=== PATIENT | female | born 1990 | race Asian ===

== ENCOUNTER → 2023-12-27 12:53 | Outpatient (REF) | payer BC, SELFPAY | LOC: HWRAD 12:53 | PROVIDERS: ATTENDING PHYSICIAN Obstetrics & Gynecology; FAMILY PHYSICIAN Nurse Practitioner | DX: O02.1 Missed abortion (principal) | CPT/HCPCS: 76830; 76856 ==

== ENCOUNTER → 2025-01-11 13:35 | Outpatient (REF) | payer BC, SELFPAY | LOC: PNTC 13:35 | PROVIDERS: ATTENDING PHYSICIAN Obstetrics & Gynecology | DX: O09.513 Supervision of elderly primigravida, third trimester (principal); O24.410 Gestational diabetes mellitus in pregnancy, diet controlled; O34.13 Maternal care for benign tumor of corpus uteri, third trimester; O99.213 Obesity complicating pregnancy, third trimester | CPT/HCPCS: 76816 ==

== ENCOUNTER → 2025-01-18 08:06 | Outpatient (REF) | payer BC, SELFPAY ==
--- NOTE | 2025-01-17 14:44 | PN.DIAED06 ---
Meal Plan - Gestational
- Breakfast
Gestational Diabetes Meal Plan Name: 1800 calories
Breakfast - Total Carbohydrate (grams): 30 (1 serving carb = 15 g.)
Breakfast - Starch Carbohydrate: 1
Breakfast - Fruit Carbohydrate: 0 (no fruit or juice before lunch)
Breakfast - Milk Carbohydrate: 1
Breakfast - Nonstarchy Vegetables: Yes
Breakfast - Meat/Protein: 1 (1 serving protein = 1 oz = 28 g. )
Breakfast - Fat: 2 (1 serving fat = 5 g.)
- Morning Snack
Morning Snack - Total Carbohydrate (grams): 30
Morning Snack - Starch Carbohydrate: 1
Morning Snack - Fruit Carbohydrate: 0 (no fruit or juice before lunch)
Morning Snack - Milk Carbohydrate: 1
Morning Snack - Nonstarchy Vegetables: Yes
Morning Snack - Meat/Protein: 0.5
Morning Snack - Fat: 0
- Lunch
Lunch - Total Carbohydrate (grams): 45
Lunch - Starch Carbohydrate: 2
Lunch - Fruit Carbohydrate: 1
Lunch - Milk Carbohydrate: 0
Lunch - Nonstarchy Vegetables: Yes
Lunch - Meat/Protein: 2
Lunch - Fat: 1
- Afternoon Snack
Afternoon Snack - Total Carbohydrate (grams): 30
Afternoon Snack - Starch Carbohydrate: 1
Afternoon Snack - Fruit Carbohydrate: 1
Afternoon Snack - Milk Carbohydrate: 0
Afternoon Snack - Nonstarchy Vegetables: Yes
Afternoon Snack - Meat/Protein: 1
Afternoon Snack - Fat: 0
- Dinner
Dinner - Total Carbohydrate (grams): 45
Dinner - Starch Carbohydrate: 2
Dinner - Fruit Carbohydrate: 0
Dinner - Milk Carbohydrate: 1
Dinner - Nonstarchy Vegetables: Yes
Dinner - Meat/Protein: 2
Dinner - Fat: 2
- Evening Snack
Evening Snack - Total Carbohydrate (grams): 30
Evening Snack - Starch Carbohydrate: 1
Evening Snack - Fruit Carbohydrate: 0
Evening Snack - Milk Carbohydrate: 1
Evening Snack - Nonstarchy Vegetables: Yes
Evening Snack - Meat/Protein: 1
Evening Snack - Fat: 1
--- NOTE | 2025-01-18 10:00 | PN.DE ---
Diabetes Education
- -
01/18/2025 GESTATIONAL DIABETES CONSULT
Met with Ms. Malik today for medical nutrition therapy. She is G2, P0 and her JUSTIN is 03/19/[birth year]25.
Explained glucose metabolism in body and what occurs during to cause increase blood sugar. Discussed importance of keeping BS well controlled to avoid complications to the baby during and after (macrosomia, hypoglycemia).
Discussed macronutrients, provided with 1800 davina GDM meal plan, reviewed carb, protein and fat portion sizes and food combinations necessary for glucose control.
Discussed physical activity, she does yoga and some walking stating that she feels tired after 15 minutes. Samuel was encouraged to start exercising by taking a walk after meals. She was receptive to the idea.
Yuliya presented to the appointment with a new Glucose monitor- [employer] Verio with supplies. Reviewed proper testing technique, testing sites and testing pattern. She is aware to test FBS and 2 hr pp each meal. Expected results for FBS <95 mg/dl
and 2 hr pp <120 mg/dl. Noted for blood sugar of 88 mg/dL post prandial. Log sheet provided for her to record results, she will send a 4-day meal log with all her FBG and 2hr Post prandial glucose numbers to this office for review. In addition,
[facility]
She was encouraged to reach out should she require insulin.
== END ==
LOC: DES 08:06
PROVIDERS: ATTENDING PHYSICIAN Obstetrics & Gynecology
DX: O24.419 Gestational diabetes mellitus in pregnancy, unspecified control (principal)
CPT/HCPCS: 99078

== ENCOUNTER → 2025-01-31 10:00 | Outpatient (REF) | payer BC, SELFPAY | LOC: PNTC 10:00 | PROVIDERS: ATTENDING PHYSICIAN Obstetrics & Gynecology | DX: O24.419 Gestational diabetes mellitus in pregnancy, unspecified control (principal); O09.529 Supervision of elderly multigravida, unspecified trimester | CPT/HCPCS: 59025; 76815 ==

== ENCOUNTER → 2025-02-07 09:37 | Outpatient (REF) | payer BC, SELFPAY | LOC: PNTC 09:37 | PROVIDERS: ATTENDING PHYSICIAN Obstetrics & Gynecology | DX: O24.410 Gestational diabetes mellitus in pregnancy, diet controlled (principal); O09.513 Supervision of elderly primigravida, third trimester; O99.213 Obesity complicating pregnancy, third trimester; O34.33 Maternal care for cervical incompetence, third trimester | CPT/HCPCS: 59025; 76816 ==

== ENCOUNTER → 2025-02-14 07:33 | Outpatient (REF) | payer BC, SELFPAY | LOC: PNTC 07:33 | PROVIDERS: ATTENDING PHYSICIAN Obstetrics & Gynecology | DX: O24.410 Gestational diabetes mellitus in pregnancy, diet controlled (principal); O09.513 Supervision of elderly primigravida, third trimester; O99.213 Obesity complicating pregnancy, third trimester; O34.13 Maternal care for benign tumor of corpus uteri, third trimester | CPT/HCPCS: 59025; 76815 ==

== ENCOUNTER → 2025-02-21 09:36 | Outpatient (REF) | payer BC, SELFPAY | LOC: PNTC 09:36 | PROVIDERS: ATTENDING PHYSICIAN Obstetrics & Gynecology | DX: O24.410 Gestational diabetes mellitus in pregnancy, diet controlled (principal); O09.513 Supervision of elderly primigravida, third trimester; O99.213 Obesity complicating pregnancy, third trimester; O34.13 Maternal care for benign tumor of corpus uteri, third trimester | CPT/HCPCS: 59025; 76815 ==

== ENCOUNTER → 2025-02-28 08:56 | Outpatient (REF) | payer BC, SELFPAY | LOC: PNTC 08:56 | PROVIDERS: ATTENDING PHYSICIAN Obstetrics & Gynecology | DX: O24.410 Gestational diabetes mellitus in pregnancy, diet controlled (principal); O09.513 Supervision of elderly primigravida, third trimester; O99.213 Obesity complicating pregnancy, third trimester; O34.13 Maternal care for benign tumor of corpus uteri, third trimester | CPT/HCPCS: 76815 ==

== ENCOUNTER → 2025-03-07 09:05 | Outpatient (REF) | payer BC, SELFPAY | LOC: PNTC 09:05 | PROVIDERS: ATTENDING PHYSICIAN Obstetrics & Gynecology | DX: O24.410 Gestational diabetes mellitus in pregnancy, diet controlled (principal); O09.513 Supervision of elderly primigravida, third trimester; O99.213 Obesity complicating pregnancy, third trimester; O34.13 Maternal care for benign tumor of corpus uteri, third trimester | CPT/HCPCS: 59025; 76816 ==

== ENCOUNTER → 2025-03-14 14:01 | Outpatient (REF) | payer BC, SELFPAY | LOC: PNTC 14:01 | PROVIDERS: ATTENDING PHYSICIAN Obstetrics & Gynecology | DX: O24.419 Gestational diabetes mellitus in pregnancy, unspecified control (principal) | CPT/HCPCS: 59025; 76815 ==

== ENCOUNTER 2025-03-19 19:42 | Inpatient (IN) | payer BC, SELFPAY ==
[2025-03-19 19:53] VITALS: BMI 35.9
[2025-03-19 20:29] LABS: Hematocrit 37.7 % (37.0-47.0); Hemoglobin 13.1 g/dL (12.0-16.0); Mean Corp Hgb Conc. 34.7 g/dL (33.0-37.0); Mean Corpuscular Volume 85.1 fL (81.0-99.0); Nucleated Red Blood Cells % 0 %; Platelet Count 231 10^3/uL (130-400); Red Cell Dist. Width 14.6 % (11.5-14.5)
[2025-03-19] MEDS: CYTOTEC 25 MICROGRAM VAG (20:30)
[2025-03-19 20:43] VITALS: BP 135/76
[2025-03-19 20:47] LABS: ALT (SGPT) 12 U/L (0-35); AST (SGOT) 17 U/L (14-36); Albumin 3.8 g/dl (3.5-5.0); Alkaline Phosphatase 91 U/L (38-126); Blood Urea Nitrogen 10 mg/dl (7-17); Calcium 9.4 mg/dl (8.4-10.2); Carbon Dioxide 21 mmol/L (22-30); Chloride 110 mmol/L (98-107); Estimated Creatinine Clearance > 125 ml/min; Glucose 87 mg/dl (70-99); Potassium 4.3 mmol/L (3.5-5.1); Sodium 137 mmol/L (135-145); Total Protein 6.6 g/dl (6.3-8.2); eGFR > 60.00
[2025-03-19] MEDS: LR 1000 IV (21:39)
[2025-03-20] MEDS: CYTOTEC 50 MICROGRAM PO ×2 (00:58→05:58)
[2025-03-20] MEDS: CYTOTEC PO ×3 (05:26→10:16)
[2025-03-20] MEDS: LR 1000 IV ×2 (05:36→12:00)
[2025-03-20] MEDS: FLUSH (NSS) 1 FLUSH IV (05:37)
[2025-03-20 06:03] LABS: Glucose - Point of Care 104 mg/dl (70-99)
[2025-03-20] MEDS: PRENATAL PLUS PO (08:00)
[2025-03-20 11:05] LABS: Glucose - Point of Care 108 mg/dl (70-99)
[2025-03-20] MEDS: FENTANYL/BUPIVACAINE 100 EPIDURAL ×2 (14:14→22:51)
[2025-03-20] MEDS: SUBLIMAZE 100 MCG EPIDURAL (14:14)
[2025-03-20 15:02] LABS: Glucose - Point of Care 95 mg/dl (70-99)
[2025-03-20 17:12] LABS: Glucose - Point of Care 91 mg/dl (70-99)
[2025-03-20] MEDS: PITOCIN 30 UNITS/NSS 500 ML IV (19:17)
[2025-03-20 19:27] LABS: Glucose - Point of Care 87 mg/dl (70-99)
[2025-03-20 23:13] LABS: Glucose - Point of Care 97 mg/dl (70-99)
[2025-03-21] MEDS: ANCEF 10 IV (00:33)
[2025-03-21] MEDS: TYLENOL 1000 MG PO (00:33)
[2025-03-21] MEDS: BICITRA 30 ML PO (00:34)
[2025-03-21] MEDS: TORADOL 15 MG IV ×4 (05:35→23:31)
--- NOTE | 2025-03-21 07:40 | W.PN.ANS.POP ---
Anesthesia Post Operative
- Anesthesia Post Op Note
Vital Signs Stable-See Nursing Note: Yes
Airway Patent: Yes
Adequate Pain Control: Yes
Change in Mental Status: No
Current Postoperative Nausea & Vomiting: No
Anesthesia Complications: No
General Anesthetic Recall: No
Unplanned Admission: No
Post Op Hydration Adequate: Yes
[2025-03-21] MEDS: PRENATAL PLUS 1 TABLET PO (08:14)
[2025-03-21] MEDS: MYLICON 80 MG PO (08:14)
[2025-03-21] MEDS: SENOKOT-S 1 TABLET PO (08:14)
[2025-03-21] MEDS: TYLENOL 650 MG PO (22:14)
[2025-03-22] MEDS: TYLENOL 650 MG PO ×4 (05:27→20:41)
[2025-03-22] MEDS: MOTRIN 600 MG PO ×3 (05:27→20:41)
[2025-03-22 06:13] LABS: Hematocrit 30.3 % (37.0-47.0); Hemoglobin 10.4 g/dL (12.0-16.0); Mean Corp Hgb Conc. 34.3 g/dL (33.0-37.0); Mean Corpuscular Volume 87.6 fL (81.0-99.0); Platelet Count 194 10^3/uL (130-400); Red Cell Dist. Width 14.8 % (11.5-14.5)
[2025-03-22] MEDS: SENOKOT-S 1 TABLET PO (08:22)
[2025-03-22] MEDS: MYLICON 80 MG PO ×2 (08:22→20:41)
[2025-03-22] MEDS: PRENATAL PLUS 1 TABLET PO (08:22)
[2025-03-22 14:28] LABS: Syphilis/T. pallidum Ab Reflex Negative (Negative)
[2025-03-22] MEDS: FEOSOL 325 MG PO (16:46)
[2025-03-23] MEDS: TYLENOL 650 MG PO ×4 (06:23→23:09)
[2025-03-23] MEDS: MOTRIN 600 MG PO ×3 (06:23→20:03)
[2025-03-23] MEDS: PRENATAL PLUS 1 TABLET PO (07:49)
[2025-03-23] MEDS: FEOSOL 325 MG PO (07:49)
[2025-03-23] MEDS: SENOKOT-S 1 TABLET PO (09:49)
[2025-03-23] MEDS: MYLICON 80 MG PO (09:52)
[2025-03-24] MEDS: MOTRIN 600 MG PO ×2 (03:04→12:33)
[2025-03-24] MEDS: TYLENOL 650 MG PO ×3 (03:04→12:33)
[2025-03-24] MEDS: SENOKOT-S 1 TABLET PO (08:15)
[2025-03-24] MEDS: FEOSOL 325 MG PO (08:15)
[2025-03-24] MEDS: PRENATAL PLUS 1 TABLET PO (09:59)
--- NOTE | 2025-03-24 10:06 | W.DS.TRANS ---
DC Summary - [employer]
-
Discharge Instructions:
Discharge Diagnosis/Procedures Section
Diet No restrictions
Instructions:
Stand-Alone Forms: LDRP Delivery
Changes to Home Medications: No
Discharge Medications:
DC Medications w/original date entered in [facility] [employer]
1 tab PO DAILY 03/19/25
acetaminophen 325 mg tablet 650 mg (2 x 325 mg) PO Q4HPRN PRN mild pain #0 tabs 03/24/25
ferrous sulfate 325 mg (65 mg iron) tablet (FeroSul) 325 mg PO DAILY #45 tabs 03/24/25
ibuprofen 600 mg tablet 600 mg PO Q6HPRN PRN cramps #45 tabs 03/24/25
sennosides 8.6 mg-docusate sodium 50 mg tablet 1 tab PO DAILYPRN PRN constipation #0 tabs 03/24/25
Home Medication Changes
Pending Results: No
[2025-03-24] MEDS: M-M-R II 0.5 ML SC (10:07)
== END 2025-03-24 13:25 | disposition home or self-care (01) | DRG 788 ==
LOC: LDRP 19:42
PROVIDERS: Obstetrics & Gynecology; ADMITTING PHYSICIAN Obstetrics & Gynecology
PROC: 3E0P7VZ Introduction of Hormone into Female Reproductive, Via Natural or Artificial Opening (ICD-10-PCS; 2025-03-19)
PROC: 10907ZC Drainage of Amniotic Fluid, Therapeutic from Products of Conception, Via Natural or Artificial Opening (ICD-10-PCS; 2025-03-20)
PROC: 10D00Z1 Extraction of Products of Conception, Low, Open Approach (ICD-10-PCS; 2025-03-21)
PROC: 3E0234Z Introduction of Serum, Toxoid and Vaccine into Muscle, Percutaneous Approach (ICD-10-PCS; 2025-03-24)
DX: O24.420 Gestational diabetes mellitus in childbirth, diet controlled (principal); Z37.0 Single live birth; Z3A.40 40 weeks gestation of pregnancy; O62.1 Secondary uterine inertia; O76 Abnormality in fetal heart rate and rhythm complicating labor and delivery; O77.0 Labor and delivery complicated by meconium in amniotic fluid; D25.2 Subserosal leiomyoma of uterus; O34.13 Maternal care for benign tumor of corpus uteri, third trimester; O99.214 Obesity complicating childbirth; Z23 Encounter for immunization
CPT/HCPCS: 80053; 82962; 85025; 85027; 86780; 86850; 86900; 86901; 88307; 90707